=== PATIENT | male | born 1945 | race Caucasian/White ===

== ENCOUNTER 2020-06-19 21:22 | Inpatient (IN) | payer BC ==
[~2020-06-19 21:22] MED LIST: Butorphanol 2 MG/ML SDV IV ONE; Dexamethasone 4 MG/ML SDV IV ONE; Ketorolac 30 MG/ML SDV IVPUSH ONE; Lactated Ringers 1,000 ML IV ONE; Lidocaine 2% 20 ML MDV INJECT ONE; Propofol 200 MG/20 ML SDV IV ONE; Succinylcholine 200 MG/10 ML MDV IV ONE; fentaNYL 100 MCG/2 ML SDV IV ONE
[2020-06-19] MEDS ORDERED: Sodium Chloride 0.9% 10 ML Syringe FLUSH PRN (21:26)
[2020-06-19] MEDS ORDERED: Ondansetron 4 MG/2 ML SDV IV ONE (21:36)
[2020-06-19] MEDS ORDERED: Sodium Chloride 0.9% 1,000 ML IV ONE (21:36)
--- NOTE | 2020-06-19 21:37 | EDM.PDOC ---
ED HPI GENERAL MEDICAL PROBLEM - General Chief Complaint: Abdominal Pain Stated Complaint: HERNIA Time Seen by Provider: 06/19/20 21:37 Source of Information: Reports: Patient, Provider (DR. Langston), RN, RN Notes Reviewed History Limitations: Reports: No Limitations - History of Present Illness INITIAL COMMENTS - FREE TEXT/NARRATIVE: Patient presents to ER with complaint of nausea and vomiting, right inguinal hernia pain. Patient states he has had the right inguinal hernia for approximately 25 years, states it has been fixed several times. Patient states he ate supper about 7 PM tonight and began vomiting approximately 7:30pm. Patient was brought to the ER by his primary care provider, Dr. Langston. Patient is diaphoretic but denies any recent fever or chills. Denies any past health problems or any medications on a daily basis. Onset: Today, Sudden Abdomen Pain Score (Numeric/FACES): 9 - Related Data Allergies Allergy/AdvReac Type Severity Reaction Status Date / Time Sulfa (Sulfonamide Allergy Hives Verified 06/19/20 21:47 Antibiotics) Home Meds: Home Meds . [No Known Home Meds] 06/19/20 [History] Social & Family History - Tobacco Use Smoking Status *Q: Never Smoker - Caffeine Use Caffeine Use: Reports: Coffee - Recreational Drug Use Recreational Drug Use: No ED ROS GENERAL - Review of Systems Review Of Systems: Comprehensive ROS is negative, except as noted in HPI. ED EXAM, GI/ABD - Physical Exam Exam: See Below Exam Limited By: No Limitations General Appearance: Alert, WD/WN, Moderate Distress Eyes: Bilateral: Normal Appearance, EOMI Ears: Normal External Exam, Hearing Grossly Normal Nose: Normal Inspection Throat/Mouth: Normal Inspection, Normal Voice, No Airway Compromise Head: Atraumatic, Normocephalic Neck: Normal Inspection, Supple, Non-Tender, Full Range of Motion Respiratory/Chest: No Respiratory Distress, Lungs Clear, Normal Breath Sounds, No Accessory Muscle Use, Chest Non-Tender Cardiovascular: Normal Peripheral Pulses, Regular Rate, Rhythm, No Edema, No Gallop, No JVD, No Murmur, No Rub GI/Abdominal Exam: Normal Bowel Sounds, No Organomegaly, No Distention, No Abnormal Bruit, No Mass, Pelvis Stable, Tender (Male) Exam: Deferred, Hernia (very large right inguinal hernia) Rectal (Males) Exam: Deferred Back Exam: Normal Inspection, Full Range of Motion, NT Extremities: Normal Inspection, Normal Range of Motion, Non-Tender, Normal Capillary Refill, No Pedal Edema Neurological: Alert, Oriented, CN II-XII Intact, Normal Cognition, Normal Gait, Normal Reflexes, No Motor/Sensory Deficits Psychiatric: Normal Affect, Normal Mood Skin Exam: Warm, Intact, Normal Color, No Rash, Diaphoretic Lymphatic: No Adenopathy Course - Vital Signs Last Recorded V/S: Last Vital Signs Temp 96.4 F L 06/19/20 21:32 Pulse 80 06/19/20 21:32 Resp 19 06/19/20 21:32 BP 147/69 H 06/19/20 21:32 Pulse Ox 100 06/19/20 21:32 - Orders/Labs/Meds Orders: Active Orders 24 hr Category Date Time Status Admission Diagnosis [ADT] Stat ADT 06/19/20 22:46 Ordered Patient Status [ADT] Routine ADT 06/19/20 22:46 Active CULTURE BLOOD [BC] Stat Lab 06/19/20 21:35 Received REFLEX LACTIC ACID YES OR NO [CHEM] Routine Lab 06/19/20 22:10 Received Blood Culture x2 Reflex Set [OM.PC] Stat Oth 06/19/20 21:26 Ordered Peripheral IV Insertion Adult [OM.PC] Stat Oth 06/19/20 21:26 Ordered Labs: Laboratory Tests 06/19/20 06/19/20 06/19/20 Range/Units 21:35 21:35 21:35 WBC 10.1 H (5.0-10.0) 10^3/uL RBC 4.68 (4.6-6.2) 10^6/uL Hgb 14.4 (14.0-18.0) g/dL Hct 41.8 (40.0-54.0) % MCV 89.3 (80-100) fL MCH 30.8 (27.0-34.0) pg MCHC 34.4 (33.0-35.0) g/dL Plt Count 207 (150-450) 10^3/uL Neut % (Auto) 43.7 (42.2-75.2) % Lymph % (Auto) 47.1 (20.5-50.1) % [place] % (Auto) 8.2 H (2-8) % Eos % (Auto) 0.9 L (1.0-3.0) % Baso % (Auto) 0.1 (0.0-1.0) % Sodium 139 (136-145) mmol/L Potassium 2.8 L (3.5-5.1) mmol/L Chloride 102 (98-107) mmol/L Carbon Dioxide 24 (21-32) mmol/L Anion Gap 15.8 H (7-13) mEq/L BUN 18 (7-18) mg/dL Creatinine 1.29 (0.70-1.30) mg/dL Est Cr Clr Drug Dosing 49.52 mL/min Estimated GFR (MDRD) 54 BUN/Creatinine Ratio 14.0 (No establ ref range) Glucose 128 H (74-99) mg/dL Lactic Acid 3.7 H* (0.4-2.0) mmol/L Calcium 9.2 (8.5-10.1) mg/dL Total Bilirubin 0.5 (0.2-1.0) mg/dL AST 18 (15-37) U/L ALT 27 (16-63) U/L Alkaline Phosphatase 57 (46-116) U/L Total Protein 7.1 (6.4-8.2) g/dL Albumin 4.0 (3.4-5.0) g/dL Globulin 3.1 Albumin/Globulin Ratio 1.3 Meds: Medications Discontinued Medications Generic Name Dose Route Start Last Admin Trade Name Freq PRN Reason Stop Dose Admin Fentanyl 100 mcg 06/19/20 21:56 06/19/20 22:01 Sublimaze IVPUSH 06/19/20 21:57 100 mcg ONETIME ONE Administration Sodium Chloride 1,000 mls @ 125 mls/hr 06/19/20 21:36 06/19/20 21:46 Normal Saline IV 06/20/20 05:35 125 mls/hr CONTINUOUS ONE Administration Potassium Chloride 20 meq/ 100 mls @ 50 mls/hr 06/19/20 22:13 06/19/20 22:49 Premix IV 06/20/20 00:12 Not Given ONETIME ONE Cefazolin Sodium/Dextrose 2 gm 50 mls @ 100 mls/hr 06/19/20 22:22 06/19/20 22:28 / Premix IV 06/19/20 22:51 100 mls/hr ONETIME ONE Administration Ondansetron HCl 4 mg 06/19/20 21:36 06/19/20 21:45 Zofran IV 06/19/20 21:37 4 mg ONETIME ONE Administration Sodium Chloride 10 ml 06/19/20 21:26 06/19/20 21:22 Saline Flush FLUSH 10 ml ASDIRECTED PRN Administration Keep Vein Open - Re-Assessments/Exams Free Text/Narrative Re-Assessment/Exam: 06/19/20 22:05 Patient case discussed with Dr. Everett. Dr. Everett to the ER to see the patient. OR staff called in and the patient will be taken to the OR for incarcerated inguinal hernia repair. Departure - Departure Time of Disposition: 22:59 Disposition: Admitted As Inpatient 64 Condition: Serious Clinical Impression: Incarcerated right inguinal hernia - Discharge Information *PRESCRIPTION DRUG MONITORING PROGRAM REVIEWED*: No *COPY OF PRESCRIPTION DRUG MONITORING REPORT IN PATIENT MIKA: No Referrals: Darius Langston MD [Primary Care Provider] - Forms: ED Department Discharge Sepsis Event Note (ED) - Evaluation Sepsis Screening Result: No Definite Risk - Focused Exam Vital Signs: Vital Signs Temp Pulse Resp BP Pulse Ox 06/19/20 21:32 96.4 F L 80 19 147/69 H 100 - My Orders Last 24 Hours: My Active Orders 06/19/20 21:26 Blood Culture x2 Reflex Set [OM.PC] Stat Peripheral IV Insertion Adult [OM.PC] Stat 06/19/20 21:35 CULTURE BLOOD [BC] Stat 06/19/20 22:10 REFLEX LACTIC ACID YES OR NO [CHEM] Routine 06/19/20 22:46 Admission Diagnosis [ADT] Stat Patient Status [ADT] Routine - Assessment/Plan Last 24 Hours: My Active Orders 06/19/20 21:26 Blood Culture x2 Reflex Set [OM.PC] Stat Peripheral IV Insertion Adult [OM.PC] Stat 06/19/20 21:35 CULTURE BLOOD [BC] Stat 06/19/20 22:10 REFLEX LACTIC ACID YES OR NO [CHEM] Routine 06/19/20 22:46 Admission Diagnosis [ADT] Stat Patient Status [ADT] Routine
[2020-06-19] MEDS ORDERED: fentaNYL 100 MCG/2 ML SDV IVPUSH ONE (21:56)
[2020-06-19 22:00] LABS: ANION GAP 15.8 mEq/L (7-13)
[2020-06-19] MEDS ORDERED: Potassium Chloride 20 MEQ in Premix Bag 1 BAG IV ONE (22:13)
[2020-06-19] MEDS ORDERED: ceFAZolin 2 GM in Premix Bag 1 BAG IV ONE (22:22)
[2020-06-20] MEDS ORDERED: Morphine 2 MG/ML SYRINGE IVPUSH PRN (00:52)
[2020-06-20] MEDS ORDERED: Sodium Chloride 0.9% 10 ML Syringe FLUSH PRN (00:55)
--- NOTE | 2020-06-20 01:46 | OR ---
DATE: 06/19/2020 PREOPERATIVE DIAGNOSIS: Incarcerated large recurrent right inguinal hernia. POSTOPERATIVE DIAGNOSIS: Incarcerated large recurrent right inguinal hernia. PROCEDURE: Open repair of large incarcerated recurrent right inguinal hernia with mesh. ANESTHESIA: General. ESTIMATED BLOOD LOSS: Minimal. SPECIMEN: Omentum. INDICATION FOR PROCEDURE: This 75-year-old male presents to the emergency room with new onset of abdominal pain. He has had a longstanding scrotal hernia, but tonight symptoms are different. He is very tender to touch in the hernia area. He has had multiple episodes of nausea and vomiting. DESCRIPTION OF PROCEDURE: After adequate preparation, a groin incision was made and carried down through the external abdominal oblique. This was then extended around the cord structures and the hernia sac. Hernia sac appeared to have omentum and it did not seem to have bowel within this. The hernia sac was dissected free from down into the scrotum and brought up into the incision. The hernia sac was opened and the large redundant omentum from the hernia sac was amputated instead of being reduced back into the abdomen. The hernia sac was then closed using a running 0 Vicryl suture. This appeared to be a direct inguinal hernia and actually is a recurrent hernia. He had this previously fixed in 1969. A Prolene mesh was used to reinforce the inguinal floor. This was sewn in place along the inguinal ligament with 0 Prolene sutures and interrupted 0 Prolene sutures for the rectus sheath, tacking of the superior leaf. A ring had already been cut in the mesh and this was encircled around the cord structures. A 10 mm round suction drain was then placed through a separate stab incision above the inguinal incision. This drain was then placed down into the scrotum. The external abdominal oblique was sewn closed with 0 Vicryl suture as was Gold fascia. Vicryl was used for the skin. [facility] /[id number] BILLY
[2020-06-20] MEDS: Acetaminophen/oxyCODONE 325-5 MG Tab PO PRN ×3 (02:37→21:05)
--- NOTE | 2020-06-20 16:35 | HP ---
ADMITTING DIAGNOSIS: Incarcerated large recurrent right inguinal hernia. INTRODUCTION: This 75-year-old male presented to the emergency room with a more acute onset of a large incarcerated right inguinal hernia. He has had this for some time and had it repaired in the early . However, last night, he had increased pain, felt a popping sensation in the groin and since that time he has had multiple episodes of nausea and vomiting. He has never been able to reduce this hernia. ALLERGIES: The patient has allergies to sulfa. CURRENT MEDICATIONS: None. PRIOR SURGERIES: Open right inguinal hernia repair. FAMILY HISTORY AND SOCIAL HISTORY: The patient lives here in [facility]. He works at a machine shop for engine repair. He is . Does not smoke. REVIEW OF SYSTEMS: Negative for all systems. PHYSICAL EXAMINATION: HEENT: Normal. Chest: Lungs are clear bilaterally. Heart: Normal sinus rhythm. Abdomen: Nondistended, nontender to palpation. Genitourinary: Groin examination shows a large scrotal incarcerated inguinal hernia. Extremities: Normal. Neurologic: Intact. ASSESSMENT: Incarcerated recurrent right inguinal hernia. PLAN: I discussed the risks, benefits, and expected outcomes of an open repair with this patient. I do not think in the early , he would have had mesh that will help reduce the hernia somewhat. I did discuss with him the recurrence rate of such a large hernia still in the range of about 10%, and he probably has a 10% chance of losing the blood supply to the right testicle. In any event, I think they should go to the operating room tonight and not wait until tomorrow. He understands the plan. [facility] /[id number]
--- NOTE | 2020-06-20 17:20 | PCM.SN.2 ---
- Free Text/Narrative Note: Stable POD#1. PO liquids tolerated today. Some scrotal swelling but not as much as expected. Minimal drain output. Pain controlled by Percocet. Will Probably discharge tomorrow morning.
--- NOTE | 2020-06-21 10:55 | PCM.SN.2 ---
- Free Text/Narrative Note: Stable POD #2. Moderate pain. Scrotal swelling minimal. PO liq OK. Ambulates OK. Can discharge today. needs to have clinic apt next 8-20 for drain removal. Percocet tabs #20 given for pain.
--- NOTE | 2020-06-21 12:18 | DISCH ---
ADMITTING DIAGNOSIS: Large right recurrent incarcerated inguinal hernia. DISCHARGE DIAGNOSIS: Large right recurrent incarcerated inguinal hernia. PROCEDURE: Operative date is 06/19, which was open repair of large recurrent right inguinal hernia. INTRODUCTION: This 75-year-old male presented to the emergency room with nausea, vomiting, and increased moderate to severe pain in the right groin. He has had a known large scrotal hernia for years. However, this seems to be different in origin. His past medical history is basically unremarkable. He is a healthy 75-year-old. Heart and lungs are clear. Abdomen is mildly tender and enlarged, and his only physical abnormality is a large right scrotal hernia. This is non-reducible. HOSPITAL COURSE: He was taken to the operating room on 06/19, where an open reduction and repair of this inguinal hernia was done. Postoperatively, he did pretty well. He was able to ambulate without much difficulty. Percocet tablets were used to control his pain. His scrotal hematoma was only minimal, and he was really ready for discharge on 06/21. He does have a drain in place in the scrotum. I am going to have him come to the surgery clinic next week on 06/27 to remove the drain. Otherwise, he has unrestricted activity except for no lifting over 25 pounds or so for the next 2 weeks. I am back in [facility] on the week of July 22. If he needs to follow up then, he will call my clinic and make an appointment. [facility] /[id number]
== END 2020-06-21 11:17 | disposition home or self-care (01) | DRG 228 ==
LOC: DL.ED 21:22 → DL.MS 22:46
PROVIDERS: ADMIT Surgery; ATTEND Surgery
PROC: 0YU50JZ Supplement Right Inguinal Region with Synthetic Substitute, Open Approach (ICD-10-PCS; principal; 2020-06-19)
DX: K40.31 Unilateral inguinal hernia, with obstruction, without gangrene, recurrent (principal); Z88.2 Allergy status to sulfonamides
CPT/HCPCS: 00830; 36415; 80053; 83605; 85025; 87040; 96361; 96365; 96375; 99284-25; A9270-GY; C1781; J0330; J0595; J0690; J1100; J1885; J2001; J2405; J2704; J3010; J7030; J7120